=== PATIENT | male | born 1955 | race Caucasian/White ===

== ENCOUNTER → 2024-01-18 | Outpatient (CLI) | payer OTHER | END | disposition home or self-care (01) | LOC: RAH 13:00 | PROVIDERS: ATTEND Physical Medicine & Rehabilitation | DX: M19.031 Primary osteoarthritis, right wrist (principal); M25.431 Effusion, right wrist | CPT/HCPCS: 73221 ==

== ENCOUNTER → 2025-06-17 | Outpatient (CLI) | payer OTHER ==
--- NOTE | 2025-06-17 09:11 | HMCIMG ---
EXAM: CT Abdomen and Pelvis Without IV contrast CLINICAL HISTORY: Retention of urine. TECHNIQUE: Axial computed tomography images of the abdomen and pelvis without intravenous contrast. CONTRAST: No IV contrast. COMPARISON: None provided. FINDINGS: Liver: Normal size, contour, and attenuation. No focal lesions identified. Intrahepatic biliary ducts are not dilated. Gallbladder and Biliary Tree: Gallbladder is normal in size and attenuation. No gallstones or wall thickening. The common bile duct is not dilated. Pancreas: Normal in size and attenuation. No focal lesion or ductal dilatation. Spleen: Normal in size and attenuation. No focal lesions seen. Adrenal Glands: Normal in size and morphology. No focal lesions. Kidneys and Ureters: Back pressure changes in the kidneys in the form of mild hydroureteronephrosis. Renal size and parenchymal attenuation are otherwise maintained. No renal mass or calculus identified. Mild perinephric fat stranding Urinary Bladder: Urinary bladder measures 11.2 x 11.1 x 15 cm. Urinary bladder volume is approximately 1450 cc. Wall thickness is within normal limits. No intraluminal mass or calculus seen. Prostate: Prostate measures 5.3 x 5.1 x 6 cm (volume 85 cc). Enlarged prostate gland. Normal attenuation. No focal lesion or suspicious area identified. Bowel: Occasional diverticulosis without diverticulitis. No bowel wall thickening, mass, or obstruction seen. No free fluid or air. Other Pelvic Structures: No pelvic mass or lymphadenopathy. The rectum and surrounding structures are unremarkable. Abdominal Wall and Retroperitoneum: No abnormal soft tissue or collection. No lymphadenopathy. Vessels: Abdominal aorta and its major branches are normal in caliber. No aneurysm or abnormality seen. Bones: Mild degenerative changes noted in visualized bones. No focal bone lesion or marrow abnormality. IMPRESSION: Severe prostatomegaly. Overdistended urinary bladder. Mild to moderate right hydroureteronephrosis. No ureteric calculus. /[place]
== END | disposition home or self-care (01) ==
LOC: RAH 07:36
PROVIDERS: ATTEND Urology
DX: N40.1 Benign prostatic hyperplasia with lower urinary tract symptoms (principal); N13.30 Unspecified hydronephrosis; N32.89 Other specified disorders of bladder; K57.30 Diverticulosis of large intestine without perforation or abscess without bleeding; R33.9 Retention of urine, unspecified
CPT/HCPCS: 74176